=== PATIENT | male | born 1975 | race Caucasian/White ===

== ENCOUNTER 2016-12-08 10:04 | Emergency (ER) | payer OTHER, SELFPAY ==
[~2016-12-08] VITALS: Ht 182.9 cm; Wt 138.6 kg
[2016-12-08 10:06] VITALS: BP 156/107
[2016-12-08] MEDS ORDERED: KETOROLAC 30 MG/1 ML ONE (10:35)
[2016-12-08] MEDS ORDERED: METHOCARBAMOL 750 MG TABLET ONE (10:35)
[2016-12-08] MEDS ORDERED: KETOROLAC 30 MG/1 ML IM ONE (11:00)
[2016-12-08] MEDS ORDERED: METHOCARBAMOL 750 MG TABLET PO ONE (11:00)
== END 2016-12-08 12:18 | disposition home or self-care (01) ==
LOC: ED 12:00
DX: S29.012A Strain of muscle and tendon of back wall of thorax, initial encounter (principal); S16.1XXA Strain of muscle, fascia and tendon at neck level, initial encounter; V89.2XXA Person injured in unspecified motor-vehicle accident, traffic, initial encounter; Y93.89 Activity, other specified; Y99.8 Other external cause status; Y92.89 Other specified places as the place of occurrence of the external cause
CPT/HCPCS: 72020; 72050; 72072; 72125; 96372; 99284; J1885

== ENCOUNTER 2017-01-11 05:58 | Emergency (ER) | payer MEDICAID, OTHER ==
[~2017-01-11] VITALS: Ht 185.4 cm; Wt 138.4 kg
[2017-01-11] MEDS ORDERED: DIPHENHYDRAMINE 50 MG/ML, 1ML IVPush ONE (06:30)
[2017-01-11] MEDS ORDERED: FAMOTIDINE 20 MG/2 ML ONE (06:30)
[2017-01-11] MEDS ORDERED: DIPHENHYDRAMINE 50 MG/ML, 1ML ONE (06:30)
[2017-01-11] MEDS ORDERED: methylPREDNISolone SOD SUCC 125 MG/2 ML IVPush ONE (06:30)
[2017-01-11] MEDS ORDERED: methylPREDNISolone SOD SUCC 125 MG/2 ML ONE (06:30)
[2017-01-11] MEDS ORDERED: FAMOTIDINE 20 MG/2 ML IVPush ONE (06:30)
[2017-01-11 08:02] VITALS: BP 123/73
== END 2017-01-11 08:15 | disposition home or self-care (01) ==
LOC: ED 08:09
DX: T78.40XA Allergy, unspecified, initial encounter (principal); X58.XXXA Exposure to other specified factors, initial encounter
CPT/HCPCS: 96374; 96375; 99284; J1200; J2930; S0028

== ENCOUNTER 2017-01-18 21:13 | Emergency (ER) | payer MEDICAID ==
[~2017-01-18] VITALS: Ht 185.4 cm; Wt 136.3 kg
[2017-01-18] MEDS ORDERED: EPINEPHRINE 1 MG/ML, 1ML SQ ONE (22:00)
[2017-01-18] MEDS ORDERED: DIPHENHYDRAMINE 50 MG/ML, 1ML IVPush ONE (22:00)
[2017-01-18] MEDS ORDERED: DIPHENHYDRAMINE 50 MG/ML, 1ML ONE (22:00)
[2017-01-18] MEDS ORDERED: FAMOTIDINE 20 MG/2 ML IVPush ONE (22:00)
[2017-01-18] MEDS ORDERED: FAMOTIDINE 20 MG/2 ML ONE (22:01)
[2017-01-18] MEDS ORDERED: EPINEPHRINE 1 MG/ML, 1ML ONE ×2 (22:01→22:06)
[2017-01-19] MEDS ORDERED: EPINEPHRINE 1 MG/ML, 1ML SQ ONE
[2017-01-19] MEDS ORDERED: EPINEPHRINE 1 MG/ML, 1ML ONE (00:09)
[2017-01-19 01:24] VITALS: BP 128/74
== END 2017-01-19 01:26 | disposition home or self-care (01) ==
LOC: ED 21:57
DX: L50.9 Urticaria, unspecified (principal); F17.200 Nicotine dependence, unspecified, uncomplicated
CPT/HCPCS: 96372; 96374; 96375; 99284; J0171; J1200; J7512; S0028